=== PATIENT | female | born 1955 | race Caucasian/White ===

== ENCOUNTER 2019-03-21 16:43 | Emergency (ER) | payer OTHER ==
[~2019-03-21] VITALS: Ht 170.2 cm; Wt 88.6 kg
[2019-03-21 17:04] VITALS: BP 216/90
--- NOTE | 2019-03-21 17:15 | NUR ---
PT MAB TO RESTROOM WITH STEADY GAIT
--- NOTE | 2019-03-21 17:20 | NUR ---
DR FALL AT BEDSIDE
--- NOTE | 2019-03-21 17:36 | NUR ---
LAB AT BEDSIDE
--- NOTE | 2019-03-21 17:38 | NUR ---
XRAY AT BEDSIDE
--- NOTE | 2019-03-21 17:54 | NUR ---
c/o increased fatigued, generalized weakness with constant headache, dizziness x today nausea---denies vominting or diarrhea, denies recent injury. full clear speech, no facial asymmetry, tongue midline, no drift noted, ambulatory with steady gait per patient, she was recently diagnosed with htn and has been trying out different bp medications. upon triage, bp in the 200s, bp now 177/76. [id number]. pain /. bed is down, locked, bed rial x 1, ermd to see pt. hx---htn, thyroid rx---losartan, levothyroxine
--- NOTE | 2019-03-21 18:01 | NUR ---
pt being taken to ct
[2019-03-21 18:06] LABS: BASOPHILS # (AUTO) 0.1 K/uL (0.00-0.22); BASOPHILS % (AUTO) 0.6 % (0.0-2.0); EOSINOPHILS # (AUTO) 0.1 K/uL (0-0.4); EOSINOPHILS % (AUTO) 1.3 % (0.0-4.0); HEMATOCRIT 36.7 % (36-48); HEMOGLOBIN 12.2 g/dL (12.0-16.0); LYMPHOCYTES # (AUTO) 2.3 K/uL (2.5-16.5); LYMPHOCYTES % (AUTO) 23.6 % (20.5-51.1); MEAN CORPUSCULAR HEMOGLOBIN 31 pg (27-31); MEAN CORPUSCULAR HGB CONC 33 g/dL (33-37); MEAN CORPUSCULAR VOLUME 92.1 fL (80-94); MONOCYTES # (AUTO) 0.5 K/uL (0.8-1.0); MONOCYTES % (AUTO) 5.2 % (1.7-9.3); NEUTROPHILS # (AUTO) 6.9 K/uL (1.8-7.7); NEUTROPHILS % (AUTO) 69.3 % (42.2-75.2); PLATELET COUNT (AUTO) 217 K/uL (140-450); RED BLOOD CELL COUNT(AUTO) 3.98 MIL/uL (4.20-5.40); RED CELL DISTRIBUTION WIDTH 13.6 % (11.6-13.7); WHITE BLOOD COUNT (AUTO) 9.9 K/uL (4.8-10.8)
--- NOTE | 2019-03-21 18:12 | NUR ---
pt returned from ct
[2019-03-21 18:14] LABS: APPEARANCE,URINE CLEAR (CLEAR); BILIRUBIN,URINE NEGATIVE (NEGATIVE); BLOOD, URINE NEGATIVE (NEGATIVE); COLOR,URINE YELLOW (YELLOW); LEUKOCYTE ESTERASE ,URINE NEGATIVE (NEGATIVE); NITRITE, URINE NEGATIVE (NEGATIVE); PH,URINE 6.5 (5.0-9.0); UGLUCOSE NEGATIVE (NEGATIVE)
[2019-03-21 18:18] LABS: PROTHROMBIN TIME 9.3 secs (10.8-13.4)
[2019-03-21 18:29] LABS: POTASSIUM 3.6 mmol/L (3.5-5.1)
[2019-03-21 18:30] LABS: ALBUMIN 3.3 g/dL (3.4-5.0); ANION GAP 12.4 (8-16); CARBON DIOXIDE 26.2 mmol/L (21-32); CREATININE 0.9 mg/dL (0.6-1.3); TOTAL BILIRUBIN 0.3 mg/dL (0.0-1.0)
--- NOTE | 2019-03-21 18:31 | NUR ---
pts bp 184/81, dr foreman aware of pts high bp
[2019-03-21] MEDS: KETOROLAC 30 MG/ML VIAL IVP ONE (18:57)
[2019-03-21] MEDS: NACL 0.9% 1,000 ML IV ONE (18:57)
[2019-03-21] MEDS: ONDANSETRON 4 MG/2 ML VIAL IVP ONE (18:58)
--- NOTE | 2019-03-21 19:28 | NUR ---
VS TAKEN AT THIS TIME. PT AMB TO RESTROOM WITH STEADY GAIT, [id number]
[2019-03-21 20:00] VITALS: BP 179/84
--- NOTE | 2019-03-21 20:00 | NUR ---
DISCHARGE PAPERS GIVEN TO PT. STATES 09/18 TOLLERABLE ARIAS PAIN. NO DIZZINESS, NO N/V. PT STATES RELIEF. INSTRUCTED TO F/U WITH PCP AND WHEN TO RETURN TO ER. PT VERBALLIZED UNDERSTANDING OF DC INSTRCUTIONS. ALL QUESTIONS ANSWERED.
== END 2019-03-21 20:00 | disposition home or self-care (01) ==
LOC: MED 16:43
DX: I16.0 Hypertensive urgency (principal); E03.9 Hypothyroidism, unspecified; R06.02 Shortness of breath
CPT/HCPCS: 36415; 70450; 71045; 80053; 81003; 83880; 84484; 85025; 85610; 85730; 93005; 96361; 96374; 96375; 99284; J1885; J2405; J7030

== ENCOUNTER 2020-08-12 09:42 | Emergency (ER) | payer OTHER ==
[~2020-08-12] VITALS: Ht 170.2 cm; Wt 82.1 kg
[2020-08-12 09:54] VITALS: BP 130/71
--- NOTE | 2020-08-12 09:57 | NUR ---
Ambulated to bed 3
[2020-08-12] MEDS: IBUPROFEN 600 MG TAB PO ONE (10:18)
[2020-08-12] MEDS: ACETAMINOPHEN EXTRA STRENGTH 500 MG TAB PO ONE (10:19)
--- NOTE | 2020-08-12 11:40 | NUR ---
EMT placing sling on left arm
[2020-08-12 11:43] VITALS: BP 128/74
--- NOTE | 2020-08-12 11:48 | NUR ---
Patient discharged with v/s stable. Written and verbal after care instructions given and explained. Patient alert, oriented and verbalized understanding of instructions. Ambulatory with steady gait. All questions addressed prior to discharge. ID band removed. Patient advised to follow up with PMD. Rx of Ibuprofen 600mg was given. Patient educated on indication of medication including possible reaction and side effects. Opportunity to ask questions provided and answered.
== END 2020-08-12 11:48 | disposition home or self-care (01) ==
LOC: MED 09:42
DX: M25.512 Pain in left shoulder (principal); E11.9 Type 2 diabetes mellitus without complications; E07.9 Disorder of thyroid, unspecified; Z98.890 Other specified postprocedural states; W18.39XA Other fall on same level, initial encounter; Y93.89 Activity, other specified; Y92.89 Other specified places as the place of occurrence of the external cause; Y99.8 Other external cause status
CPT/HCPCS: 73030; 90471; 90715; 99283